=== PATIENT | female | born 1965 | race Caucasian/White ===

== ENCOUNTER 2016-04-26 01:20 | Emergency (ER) | payer BC ==
--- NOTE | 2016-04-26 19:29 | ER ---
ADMIT: 04/26/2016 RM/LOC: ER [facility] MR#: [id number] [place], [place] [id number] [address] [place] [address] Emergency Room Report SEX: F AGE: 51 : 1965 DATE: 04/26/2016 HISTORY OF PRESENT ILLNESS: The patient is a 51-year-old female with past medical history of hypertension, arthritis, fibromyalgia, came to the ER with chief complaint of right upper quadrant and right flank pain, which has started today and is waxing and waning and is aching and sometimes crampy. The patient denies similar pain in the recent past, but states she had 1 episode of the pain some time ago. The patient has nausea, but denies any vomiting. PHYSICAL EXAMINATION: VITAL SIGNS: The patient was afebrile. The rest of the vitals are normal. HEAD and NECK: Noncontributory. RESPIRATORY: Normal breath sounds bilaterally. HEART: Normal S1, S2. ABDOMEN: The patient had right upper quadrant and mild right flank tenderness without any rebound or guarding. The rest of the physical exam is noncontributory. Bedside ultrasound was negative, pain was controlled. The rest of the lab works were all negative and noncontributory. The pain was completely controlled. The patient is stable and was discharged to home with return precautions and follow up with the primary doctor. Francisco Levine MD/ sara JOB #: [id number] CC: Francisco Levine MD, Attending Physician Ana Luisa Novak MD, Family Physician
== END 2016-04-26 04:35 | disposition home or self-care (01) ==
LOC: ER 01:20
DX: R10.13 Epigastric pain (principal); I10 Essential (primary) hypertension; Z98.890 Other specified postprocedural states; Z79.4 Long term (current) use of insulin; Z79.899 Other long term (current) drug therapy